=== PATIENT | male | born 1975 ===

== ENCOUNTER → 2019-03-22 | Outpatient (CLI) | payer BC ==
[2019-03-23 06:33] LABS: Stool Occult Bld Immuno 1 Negative (NEGATIVE); Stool Occult Bld Immuno 2 Negative (NEGATIVE); Stool Occult Bld Immuno 3 Negative (NEGATIVE)
== END ==
LOC: LAB SHORT 15:00 → LAB 15:00 → LAB FUT 03-17 10:20
PROVIDERS: Nurse Practitioner Family
DX: R10.9 Unspecified abdominal pain (principal); R14.0 Abdominal distension (gaseous)
CPT/HCPCS: 82274